=== PATIENT | female | born 1980 | race Hispanic/Latino ===

== ENCOUNTER 2019-03-19 01:59 | Emergency (ER) | payer SELFPAY ==
[2019-03-19] MEDS ORDERED: SODIUM CHLORIDE 0.9% 1000 ML 1,000 ML IV ONE ×2 (02:03→03:24)
--- NOTE | 2019-03-19 02:06 | Emergency Department Report ---
History of Present Illness - General Stated Complaint: UNRESPONSIVE Time Seen by Provider: 03/19/19 02:02 Source: EMS Mode of arrival: Ambulatory Limitations: Altered Mental Status, Physical Limitation - History of Present Illness Initial Comments: Patient is a 38-year-old female that presents emergency room for unresponsiveness to most likely a drug overdose. Patient is brought in by EMS. EMS gave the patient for Narcan and the patient became more arousable. EMS states initially the patient was breathing 6 times a minute and had a heart rate of 48, with a GCS of 3. After the Narcan the patient began breathing 16 times a minute and heart rate improved and GCS improved to 9. MD Complaint: accidental overdose -: Sudden Intent: unknown How Overdose Was Discovered: called family/friend Treatments Prior to Arrival: narcan - Related Data Allergies Allergy/AdvReac Type Severity Reaction Status Date / Time Unable to Assess Allergy Verified 03/19/19 02:08 ED Review of Systems ROS: Stated complaint: UNRESPONSIVE Other details as noted in HPI ED Past Medical Hx - Past Medical History Previous Medical History?: No - Surgical History Past Surgical History?: No - Family History Family history: no significant - Social History Smoking Status: Unknown if ever smoked Substance Use Type: Other ED Physical Exam - General Limitations: Altered Mental Status, Physical Limitation General appearance: lethargic - Head Head exam: Present: atraumatic, normocephalic - Eye Eye exam: Present: normal appearance, other (pupils pinpoint) - ENT ENT exam: Present: mucous membranes dry - Neck Neck exam: Present: normal inspection - Respiratory Respiratory exam: Present: normal lung sounds bilaterally. Absent: respiratory distress, wheezes, rales - Cardiovascular Cardiovascular Exam: Present: regular rate, normal rhythm. Absent: systolic murmur, diastolic murmur, rubs, gallop - GI/Abdominal GI/Abdominal exam: Present: soft, normal bowel sounds - Extremities Exam Extremities exam: Present: normal inspection - Back Exam Back exam: Present: normal inspection - Neurological Exam Neurological exam: Present: altered - Expanded Neurological Exam Expanded Best Eye Response (Matt): (2) open to pain Best Motor Response (Earth): (5) localizes to pain Best Verbal Response (Matt): (2) incomprehsible sounds Earth Total: 9 - Skin Skin exam: Present: warm, dry, intact, normal color. Absent: rash ED Course Vital Signs 03/19/19 03/19/19 03/19/19 02:02 02:08 02:15 Temperature 96 F L Pulse Rate 48 L 49 L 48 L Respiratory 16 20 12 Rate Blood Pressure 146/79 146/79 136/73 O2 Sat by Pulse 100 100 100 Oximetry 03/19/19 03/19/19 03/19/19 02:30 02:45 03:00 Temperature Pulse Rate 45 L 48 L 46 L Respiratory 15 15 14 Rate Blood Pressure 145/83 141/81 137/82 O2 Sat by Pulse 100 100 100 Oximetry 03/19/19 03/19/19 03/19/19 03:15 03:31 04:00 Temperature Pulse Rate 56 L 95 H 49 L Respiratory 16 22 18 Rate Blood Pressure 137/82 141/81 156/84 O2 Sat by Pulse 100 96 97 Oximetry 03/19/19 04:41 Temperature Pulse Rate 72 Respiratory 13 Rate Blood Pressure 156/84 O2 Sat by Pulse 100 Oximetry - Reevaluation(s) Reevaluation #1: Patient given another 2 of Narcan. Minimal changes in mental status. Patient placed on 201203/19/19 02:24 Reevaluation #2: Patient talking and some answering questions. 03/19/19 03:28 Reevaluation #3: Patient is awake and alert and oriented and answering questions appropriately. I will rescind the 2013. Patient denies suicidal or homicidal ideations. Patient states was an accident overdose and she was just having fun. Patient states she was not trying to hurt herself. I discussed all results the patient. Patient is stable for discharge. Patient states she does not need drug rehabilitation. Mental health will be ordered to give her outpatient resources. Patient will be discharged home after mental health assessment and outpatient resources given. I discussed discharge instructions the patient. I encouraged patient to avoid drug use. Patient voiced understanding of discharge instructions. 03/19/19 05:49 03/19/19 05:52 03/19/19 05:53 ED Medical Decision Making - Lab Data Result diagrams: 03/19/19 02:24 03/19/19 02:24 - Radiology Data Radiology results: report reviewed Examination: CT of the head without contrast Clinical information: Altered mental status. Comparison: None Technical: Multiple axial CT images of the head were obtained without intravenous contrast. Sagittal and coronal reformats were obtained. All CTs at this facility utilize dose reduction techniques including automated exposure control, iterative reconstruction and weight based dosing when appropriate to reduce patient radiation dose to as low as reasonable achievable. Findings: Evaluation is somewhat limited due to difficulties with patient positioning and patient motion. There is no CT evidence of acute intracranial hemorrhage or large territorial infarct. The ventricular system is normal in size. No extra-axial fluid collections are identified. Evaluation of the calvarium demonstrates no evidence of acute bony abnormality. The visualized paranasal sinuses appear clear. Impression: 1. Somewhat limited evaluation without CT evidence of acute intracranial process. - Medical Decision Making Patient is a 38-year-old female with a presents emergency room with accidental overdose of methamphetamines. Patient initially placed on 2012 but presented after patient was of sound mind and body. Patient's head CT negative. Patient's labs unremarkable except for UDS positive for meth. Mental health fisheries enforcement officer consult for outpatient resources. - Differential Diagnosis overdose. Drug abuse Critical Care Time: Yes Critical care time in (mins) excluding proc time.: 35 Critical care attestation.: If time is entered above; I have spent that time in minutes in the direct care of this critically ill patient, excluding procedure time. Critical Care Time: 35 minutes ED Disposition Clinical Impression: Overdose Qualifiers: Encounter type: initial encounter Injury intent: accidental or unintentional Qualified Code(s): T50.901A - Poisoning by unspecified drugs, medicaments and biological substances, accidental (unintentional), initial encounter Disposition: DC-01 TO HOME OR SELFCARE Is pt being admited?: No Does the pt Need Aspirin: No Condition: Stable Instructions: Methamphetamine Abuse (ED) Additional Instructions: Patient to follow up with primary care in 2-3 days. Patient to follow up with resources given by her mental health fisheries enforcement officer. Patient to avoid drug use. Patient encouraged to stop using drugs. Patient increase water. Patient to rest. Patient to take Tylenol or ibuprofen when necessary for pain. Referrals: PRIMARY CARE,MD [Primary Care Provider] - 2-3 Days
[2019-03-19] MEDS ORDERED: NALOXONE 2 MG/2 ML INJ ONE (02:21)
[2019-03-19] MEDS ORDERED: NALOXONE 2 MG/2 ML INJ IV ONE (02:29)
[2019-03-19 02:36] LABS: Bilirubin,Urine NEG (Negative); Blood,Urine SM (Negative); Color,Urine Straw (Yellow); Mucus,Urine FEW /HPF; Protein,Urine <15 mg/dL mg/dL (Negative); RBC,Urine < 1.0 /HPF (0.0-6.0); Urobilinogen,Urine < 2.0 mg/dL (<2.0)
[2019-03-19 02:37] LABS: WBC,Urine < 1.0 /HPF (0.0-6.0)
[2019-03-19 02:43] LABS: Benzodiazepines Screen,Urine PRESUMPTIVE NEGATIVE; Cannabinoid Screen,Urine PRESUMPTIVE NEGATIVE; Cocaine Screen,Urine PRESUMPTIVE NEGATIVE; Methadone Screen,Urine PRESUMPTIVE NEGATIVE; Opiate Screen,Urine PRESUMPTIVE NEGATIVE
[2019-03-19 02:56] LABS: Basophils # (Auto) 0.1 K/mm3 (0.0-0.1); Eosinophils # (Auto) 0.4 K/mm3 (0.0-0.4); Eosinophils % (Auto) 3.2 % (0.0-4.3); Lymphocytes # (Auto) 1.9 K/mm3 (1.2-5.4); Lymphocytes % (Auto) 14.7 % (13.4-35.0); Mean Corpuscular HGB Conc 32 % (30-34); Mean Corpuscular Volume 86 fl (79-97); Monocytes # (Auto) 0.7 K/mm3 (0.0-0.8); Platelet Count 336 K/mm3 (140-440); Red Blood Count 4.43 M/mm3 (3.65-5.03); Red Cell Distribution Width 15.3 % (13.2-15.2)
[2019-03-19 03:03] LABS: Amphetamine Screen,Urine PRESUMPTIVE POSITIVE
[2019-03-19 03:24] LABS: Alanine Aminotransferase 16 units/L (7-56); Albumin 4.1 g/dL (3.9-5); BUN/Creatinine Ratio 11; Blood Urea Nitrogen 10 mg/dL (7-17); Hemolysis Index 23
--- NOTE | 2019-03-19 04:38 | Cat Scan Report ---
Examination: CT of the head without contrast Clinical information: Altered mental status. Comparison: None Technical: Multiple axial CT images of the head were obtained without intravenous contrast. Sagittal and coronal reformats were obtained. All CTs at this facility utilize dose reduction techniques inc luding automated exposure control, iterative reconstruction and weight based dosing when appropriate to reduce patient radiation dose to as low as reasonable achievable. Findings: Evaluation is somewhat limited due to difficulties with patient positioning and patient mot ion. There is no CT evidence of acute intracranial hemorrhage or large territorial infarct. The ventr icular system is normal in size. No extra-axial fluid collections are identified. Evaluation of the calvarium demonstrates no evidence of acute bony abnormality. The visualized parana toya sinuses appear clear. Impression: 1. Somewhat limited evaluation without CT evidence of acute intracranial process. Signer Name: Holly Mcnair MD Signed: 03/19/2019 4:34 AM Workstation Name: [id number]
[2019-03-19 04:47] VITALS: BP 156/84
== END 2019-03-19 08:51 | disposition home or self-care (01) ==
LOC: ED 01:59
DX: T50.7X1A Poisoning by analeptics and opioid receptor antagonists, accidental (unintentional), initial encounter (principal); R41.82 Altered mental status, unspecified; Y92.89 Other specified places as the place of occurrence of the external cause
CPT/HCPCS: 36415; 70450; 80053; 80307; 81001; 84703; 85025; 93005; 93010; 96361; 96374; 99285; J2310; J7030; 80320; G0480